=== PATIENT | female | born 1995 | race Two or more races ===

== ENCOUNTER 2016-08-19 16:15 | Emergency (ER) | payer SELFPAY ==
[~2016-08-19] VITALS: Ht 160 cm; Wt 63.5 kg
[2016-08-19 16:40] VITALS: BP 152/90
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
[2016-08-19] MEDS ORDERED: oxyCODONE/APAP 5/325 1 TAB TABLET PO ONE (17:00)
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
[2016-08-19] MEDS ORDERED: OXYC-323 PO (18:16)
== END 2016-08-19 18:55 | disposition home or self-care (01) ==
LOC: ER 16:15
DX: S16.1XXA Strain of muscle, fascia and tendon at neck level, initial encounter (principal); S29.012A Strain of muscle and tendon of back wall of thorax, initial encounter; S00.83XA Contusion of other part of head, initial encounter; V47.5XXA Car driver injured in collision with fixed or stationary object in traffic accident, initial encounter; Y93.I9 Activity, other involving external motion; Y92.410 Unspecified street and highway as the place of occurrence of the external cause; Y99.8 Other external cause status
CPT/HCPCS: 70450; 72125; 72128; 81025; 99284-25

== ENCOUNTER 2017-01-31 16:10 | Emergency (ER) | payer SELFPAY ==
[2017-01-31 16:38] LABS: URINE HCG POC HCG NEGATIVE (Negative)
[2017-01-31 16:42] LABS: BILIRUBIN,URINE NEGATIVE (NEG); GLUCOSE,URINE NEGATIVE (NEG); NITRITE,URINE NEGATIVE (NEG); PROTEIN,URINE NEGATIVE (NEG-TRACE); UROBILINOGEN,URINE 0.2 mg/dL (0.2 mg/dL)
[2017-01-31 16:51] LABS: RBC,URINE RARE /HPF (0-2)
[2017-01-31 16:52] LABS: BACTERIA,URINE FEW /HPF (0-FEW); SQUAMOUS EPITHELIAL CELL,UR FEW /LPF
[2017-01-31] MEDS: HYDROcodone/APAP 5/325MG 1 TAB TABLET PO (16:53)
== END 2017-01-31 18:32 | disposition home or self-care (01) ==
LOC: ER 16:10
DX: M54.5 Low back pain (principal); J45.909 Unspecified asthma, uncomplicated; Z90.49 Acquired absence of other specified parts of digestive tract
CPT/HCPCS: 72100; 81001; 81025; 99285

== ENCOUNTER 2017-10-11 15:27 | Emergency (ER) | payer SELFPAY ==
[~2017-10-11] VITALS: Ht 162.6 cm; Wt 89.0 kg
[~2017-10-11 15:27] MED LIST: OXYC-323 PO; TRAM50TA PO
[2017-10-11 15:41] VITALS: BP 133/84
[2017-10-11] MEDS ORDERED: hydrOXYzine 10 MG TABLET PO STA (16:17)
[2017-10-11] MEDS ORDERED: HYDR25TA PO (16:26)
--- NOTE | 2017-10-11 16:26 | PHYS DOC ---
Past Medical History Past Medical History: Anxiety, Asthma, Depression Additional Past Medical Histor: PCOS Past Surgical History: Appendectomy Alcohol Use: Occasionally Drug Use: None Adult General Chief Complaint Chief Complaint: ITCHING HPI HPI Patient is a 21 year old female who presents to the emergency room with complaints of itching all over for the last 4 days. She denies any new meds, foods, detergents, or environmental exposures. She also denies any cough, chest pain, shortness of breath, wheezing, or fever. Patient states she is already calamine lotion and she has taken Benadryl at home for relief of her symptoms with no help. Patient states that she is an occasional cigarette smoker and she occasionally drinks alcohol, she denies any illicit drug use. Review of Systems Review of Systems Constitutional: Denies fever or chills [] Eyes: Denies change in visual acuity, redness, or eye pain [] HENT: Denies nasal congestion or sore throat [] Respiratory: Denies cough, wheezing, or shortness of breath [] Cardiovascular: Denies chest pain Musculoskeletal: Denies back pain or joint pain [] Integument: Denies rash or skin lesions , reports itching all over for 4 days[] Neurologic: Denies headache, focal weakness or sensory changes [] Current Medications Current Medications Current Medications Medications (Trade) Dose Ordered Sig/Cami Start Time Stop Time Status Last Admin Dose Admin Hydroxyzine Pamoate (Vistaril) 25 mg 1X ONCE 10/11/17 16:30 10/11/17 16:49 DC 10/11/17 16:43 25 MG Hydroxyzine HCl (Atarax) 10 mg 1X STAT 10/11/17 16:17 10/11/17 16:27 DC Allergies Allergies Allergies Coded Allergies Type Severity Reaction Last Updated Verified No Known Drug Allergies 08/19/16 No Physical Exam Physical Exam Constitutional: Well developed, well nourished, no acute distress, non-toxic appearance. [] HENT: Normocephalic, atraumatic, bilateral external ears normal, oropharynx moist, no oral exudates, nose normal. [] Eyes: PERRLA, conjunctiva normal, no discharge. [] Neck: Normal range of motion, no tenderness, supple, no stridor. [] Cardiovascular:Heart rate regular rhythm, no murmur [] Lungs & Thorax: Bilateral breath sounds clear to auscultation [] Skin: [place], Warm, dry, no erythema, no rash, no jaundice,.[] Extremities: No tenderness, no cyanosis, no edema. [] Neurologic: Alert and oriented X 3, normal motor function, normal sensory function, no focal deficits noted. [] Psychologic: Affect normal, judgement normal, mood normal. [] Current Patient Data Vital Signs Vital Signs Date Time Temp Pulse Resp B/P (MAP) Pulse Ox O2 Delivery O2 Flow Rate FiO2 10/11/17 15:41 98.4 78 18 133/84 (100) 97 Room Air 98.4 EKG EKG [] Radiology/Procedures Radiology/Procedures [] Course & Med Decision Making Course & Med Decision Making Pertinent Labs and Imaging studies reviewed. (See chart for details) Patient presents for itching 4 days, Treated As Such. One 25 Mg Hydroxyzine Was Given in the Emergency Room. Prescription for Hydroxyzine Was Written. Patient Was Instructed to Take an [id number] Antihistamine Such As Zyrtec , Caitlyn, or Claritin. Follow-Up with Primary Care Doctor in 1-2 Days. Return to ER if Symptoms Worsen.Patient verbalized an understanding of home care, medications, follow-up, and return to ED instructions and was in agreement with the plan of care. Staff Physician Addendum: I was working in the ER during the course of this patient's visit. I was available for consultation as needed, but I was not directly involved in the care of this patient. [] Dragon Disclaimer Dragon Disclaimer This electronic medical record was generated, in whole or in part, using a voice recognition dictation system. Departure Departure Impression: Primary Impression: Itching Disposition: 01 HOME, SELF-CARE Condition: STABLE Referrals: NO PCP (PCP) Patient Instructions: Itching-Brief Additional Instructions: Fill prescription and use as directed. Recommend [id number] antihistamine such as Zyrtec, Claritin, or Caitlyn daily. Wash all of your bedding and clothing. Follow-up with her primary care doctor in the next 1-2 days. Return to the emergency room if her symptoms worsen Scripts Hydroxyzine Hcl (HYDROXYZINE HCL) 25 Mg Tablet 25 MG PO QID PRN for ITCHING for 5 Days, #20 TAB 0 Refills Prov: FLAQUITO RAMESH TELETYPE OPERATOR 10/11/17 FLAQUITO RAMESH APRN Oct 11, 2017 16:26 ASHLEY ROTHMAN MD Oct 13, 2017 20:55
[2017-10-11] MEDS ORDERED: hydrOXYzine PAMOATE 25 MG CAPSULE PO ONE (16:30)
== END 2017-10-11 16:45 | disposition home or self-care (01) ==
LOC: ER 15:27
DX: L29.9 Pruritus, unspecified (principal); F41.9 Anxiety disorder, unspecified; J45.909 Unspecified asthma, uncomplicated; F32.9 Major depressive disorder, single episode, unspecified; F17.210 Nicotine dependence, cigarettes, uncomplicated; Z90.89 Acquired absence of other organs
CPT/HCPCS: 99283; Q0177